=== PATIENT | male | born 1960 | race Caucasian/White ===

== ENCOUNTER 2020-04-29 09:59 | Emergency (ER) | payer OTHER, SELFPAY ==
--- NOTE | 2020-04-29 | XR_ITS ---
EXAMINATION: XR CERVICAL SPINE CLINICAL INFORMATION: Pain COMPARISON: None TECHNIQUE: 4 views of the cervical spine were obtained. FINDINGS: Bone alignment is normal. No fracture or dislocation is seen. There is degenerative spondylosis at C4-C5 and C5-C6. Disc spaces are normal. There is soft tissue opacification of the nuchal ligament posterior to the C5 and C6 spinous processes likely related to old trauma. Prevertebral soft tissues are normal. IMPRESSION: Degenerative spondylosis at C4-C5 and C5-C6.
[2020-04-29 10:10] VITALS: BP 185/93; PULSE 74; RESP 14; TEMP 36.7; O2SAT 98; BMI 31.6
--- NOTE | 2020-04-29 10:29 | ED_ITS ---
HPI - Extremity Problem General Chief complaint: Extremity Injury, Upper Stated complaint: SHOULDER PAIN Time Seen by Provider: 04/29/20 10:08 Source: patient Mode of arrival: ambulatory Limitations: no limitations History of Present Illness MD Complaint: extremity pain Onset (ago): week(s) Pain Consistency: constant Location: left Quality: burning, sharp and constant Radiation: proximal Relieving factors: nothing Exacerbating factors: nothing Associated symptoms: denies other symptoms Related Data Previous Rx's Medication Instructions Recorded cyclobenzaprine 10 mg PO Q8H PRN #14 tab 04/29/20 dexamethasone [Decadron] 4 mg PO DAILY #5 tab 04/29/20 hydrocodone-acetaminophen 1 tab PO Q8H PRN #5 tab 04/29/20 Allergies Allergy/AdvReac Type Severity Reaction Status Date / Time aspirin Allergy Mild Eye Verified 04/29/20 10:02 Swelling Review of Systems Review of Systems: Yes all other systems are reviewed and are negative Constitutional: Constitutional: Reports no additional constitutional complaints, Denies body ache(s), Denies chills, Denies fever(s), Denies headache(s) and Denies weakness Eyes: Eyes: Reports no additional eye complaints and Denies change in vision ENT: Reports system reviewed and no additional complaints, except as documented, Denies dizziness, Denies headache(s), Denies nasal congestion, Denies nasal discharge and Denies neck pain Cardiovascular: Cardiovascular: Reports no additional cardiovascular complaints, Denies chest pain, Denies leg edema and Denies dyspnea Respiratory: Respiratory: Reports no additional respiratory complaints, Denies cough and Denies dyspnea Gastrointestinal: Gastrointestinal: Reports no additional gastrointestinal complaints, Denies abdominal pain, Denies diarrhea, Denies nausea and Denies vomiting Genitourinary: Genitourinary: Denies urinary incontinence Musculoskeletal: Musculoskeletal: Reports no additional musculoskeletal complaints, Denies back pain, Reports arthralgias, Denies joint swelling, Denies limited range of motion, Denies neck pain, Denies numbness, Reports radiating pain into limb and Denies tingling Integumentary/Breasts: Skin/Breast: Reports system reviewed and no additional complaints, except as docu and Denies rash Neurologic: Reports system reviewed and no additional complaints, except as documented, Denies Abnormal speech present, Denies dizziness, Denies headache(s), Denies numbness, Denies tingling and Denies weakness [facility] Past Medical History Attestation statement: The following information was validated with the patient. Source: obtained from family and nursing notes reviewed Medical History Lyme carditis Surgical History Hx of appendectomy Social History Social History Alcohol intake: current Alcohol intake frequency: 3 or more drinks per day Alcohol type: beer Smoking Status: Never smoker Use of substances other than those prescribed or required for medical reasons: No Advance Directives: No Advance Directives Information Provided: No Physical Exam Vital Signs and I&O and Narrative: Vital Signs and I&O: Vital Signs Temp 98.1 F 04/29/20 10:10 Pulse 74 04/29/20 10:10 Resp 14 04/29/20 10:10 BP 185/93 H 04/29/20 10:10 Pulse Ox 98 04/29/20 10:10 Intake & Output 04/28/20 04/29/20 04/29/20 18:59 06:59 18:59 Weight 97.069 kg Body Mass Index 31.6 Const: General: cooperative, healthy appearing, comfortable and no acute distress Orientation/consciousness: patient oriented x3 Limitations: no limitations HENMT: Head: Yes normal to inspection Ears: hearing grossly normal bilaterally General nose exam: Normal external nose present Face and sinus: Yes normal facial exam Mouth: Normal oral and palatal mucosa present Throat: Yes posterior oropharynx normal Eyes: General: appearance normal, both eyes and all related structures Pupils: Equal, round and reactive pupils present Neck: Other: Pain with head rotation to left, right, pain with hyperextenion of neck, lower cervical midline tenderness. No step offs or deformities Neck: Yes normal visual inspection, Yes no lymphadenopathy and Yes no meningeal signs Chest: Chest palpation & inspection: normal inspection of the chest Resp: Effort & Inspection: normal respiratory effort Auscultation: clear to auscultation bilaterally Cardio: Rate: regular rate Rhythm: regular rhythm Peripheral pulses: Peripheral pulses 2+ throughout GI: Inspection: Yes normal to inspection Palpation (GI): Soft to palpation and nontender Auscultation: normal bowel sounds Back/Spine/Pelvis: Thoracic/Lumbar Spine: thoracic and lumbar spine normal to inspection Skin: General skin exam: no rashes or lesions noted Neuro: Other: FROM left hand/wrist. Able to perform OKAY sign General: patient oriented x3, no meningeal signs, no focal motor deficits and normal sensation to monofilament Cranial nerves: Yes Equal, round and reactive pupils present Cognition (Neuro): normal cognition Speech: No Abnormal speech present Gait exam (Neuro): Normal gait present Motor exam (neuro): 5/5 motor strength present throughout and Motor abnormalities not present Sensory Exam: Normal double simultaneous stimulation for sensation Extrem: General: Yes normal to inspection Left upper extremity: normal to inspection, full ROM, normal capillary refill and shoulder/upper arm (Pain over anterior shoulder, left trapezius. ); no edema and joint enlargement noted MDM - Extremity (Nontraumatic) MDM Narrative Medical decision making narrative: L shoulder/neck pain with radiation to distal extremity x 2 weeks with NKI. FROM of extremity. Pain more MS with cervical tenderness. Likely cervical radiculopathy vs MS. Will check cervical imaging. 1130-xrays c/w with degenerative changes, consistent with arthritis. Again likely cervical radiculopathy. Imaging Data cervical x-ray: Attestation: I personally reviewed and interpreted this imaging study as follows: My impression: Spondylosis, no acute fracture Radiologist's impression: EXAMINATION: XR CERVICAL SPINE CLINICAL INFORMATION: Pain COMPARISON: None TECHNIQUE: 4 views of the cervical spine were obtained. FINDINGS: Bone alignment is normal. No fracture or dislocation is seen. There is degenerative spondylosis at C4-C5 and C5-C6. Disc spaces are normal. There is soft tissue opacification of the nuchal ligament posterior to the C5 and C6 spinous processes likely related to old trauma. Prevertebral soft tissues are normal. IMPRESSION: Degenerative spondylosis at C4-C5 and C5-C6. Discharge Plan Discharge Clinical Impression: Cervical radiculopathy Patient Disposition: Home, Self-Care Instructions: Cervical Radiculopathy (ED) Additional Instructions: Heat to the area Do not mix the pain medication with alcohol Call PCP for follow-up if no improvement in 5-7 days Prescriptions: New cyclobenzaprine 10 mg tablet 10 mg PO Q8H PRN (Reason: muscle spasm) Qty: 14 RF: 0 dexamethasone [Decadron] 4 mg tablet 4 mg PO DAILY Qty: 5 RF: 0 hydrocodone-acetaminophen 5-300 mg tablet 1 tab PO Q8H PRN (Reason: pain) Qty: 5 RF: 0 Referrals: Physician,Unknown [Primary Care Provider] - 5 days (Your PCP if no better ) Interventions: ED Discharge Assessment Last Done: 04/29/20 11:42 Discharge Date/Time: 04/29/20 11:43
== END 2020-04-29 11:43 | disposition home or self-care (01) ==
LOC: HO.ED 11:39
PROVIDERS: Emergency Provider Emergency Medicine
DX: M54.12 Radiculopathy, cervical region (principal)
CPT/HCPCS: 72040; 99283; 99284

== ENCOUNTER 2020-12-28 07:28 | Day surgery (SDC) | payer OTHER, SELFPAY ==
[2020-12-23 08:14] VITALS: BMI 29.7
--- NOTE | 2020-12-23 16:39 | MHC.SHP ---
Pre-Procedural Eval Section A The patient is an INPATIENT: No The History & Physical has been completed within 30 days and I have reviewed it.: Yes Section B Chief Complaint: Cataract Right Eye Allergies: Allergies Allergy/AdvReac Type Severity Reaction Status Date / Time aspirin Allergy Mild Eye Verified 12/23/20 08:19 Swelling,hives Plan Diagnosis/Plan: Unchanged I have reviewed the history and physical and performed a pertinent physical examination on my patient. No changes have occurred unless specified.
--- NOTE | 2020-12-25 09:42 | P.CONAN_ITS ---
Documented by User: Katelyn Coronado 12/25/20 09:42 HPI - Anesthesia Eval Consult details Narrative: 60yo M for Right Cataract Extraction IOL Insertion PCP Cleared No prev cataract on record [facility] Past Medical History Medical History H/O heartburn Low back pain Lyme carditis Seasonal allergies Surgical History Surgical History Hx of appendectomy Hx of colonoscopy Social History Social History Alcohol intake: current Alcohol intake frequency: 3 or more drinks per day Alcohol type: beer Patient Tobacco Use Status: Former Tobacco user Quit Date: 2004 Are you DNR?: No Advance Directives: No Advance Directives Information Provided: No Advance Directives on File: No Meds Allergies Allergy/AdvReac Type Severity Reaction Status Date / Time aspirin Allergy Mild Eye Verified 12/23/20 08:19 Swelling,hives Home Medications Medication Instructions Recorded Confirmed Last Taken Type No Known Home Meds 12/23/20 12/23/20 Unknown History Exam Exam Date and Time: December 25, 2020 0942 Height,Weight and Vital Signs: Height 5 ft 9 in Weight 91.172 kg Assessment and Plan Assessment Anesthesia Assessment: Chart Reviewed Documented by User: Taras Winn 12/28/20 08:12 [facility] Past Medical History Medical History H/O heartburn Low back pain Lyme carditis Seasonal allergies Surgical History Surgical History Hx of appendectomy Hx of colonoscopy Social History Social History Alcohol intake: current Alcohol intake frequency: 3 or more drinks per day Alcohol type: beer Patient Tobacco Use Status: Former Tobacco user Quit Date: 2004 Are you DNR?: No Advance Directives: No Advance Directives Information Provided: No Advance Directives on File: No Meds Allergies Allergy/AdvReac Type Severity Reaction Status Date / Time aspirin Allergy Mild Eye Verified 12/23/20 08:19 Swelling,hives Home Medications Medication Instructions Recorded Confirmed Last Taken Type No Known Home Meds 12/23/20 12/23/20 Unknown History Exam Airway Mallampati Class: II TM Dist: >3cm Neck ROM: Full Loose/Missing/Broken Teeth: No Heart: rrr+[id number] Lungs: cta b/l Assessment and Plan Assessment Anesthesia Assessment: Anesthesia Plan Discussed, PAT Visit and Chart Reviewed Final Anesthetic Review NPO: Yes ASA Class: II Final Preanesthetic Review: No Changes in Pt Med Stat, Meds/Allgs Chart Reviewed, Consent Obtained/Reviewed and Anes Risks/Benef Reviewed Patient Risk: Low Procedure Risk: Low Assessment/Block/Sedation in SS: Assess/Block/Sedation-SS Anesthetic Plan Anesthetic Plan: MAC: and Agree w/ Assess. and Plan Disposition: Standard PACU
[2020-12-28] MEDS: Tetracaine HCl/PF 0.5% Oph Sol 4 ML DROPS 1 DROP EYE-RIGHT (08:14)
[2020-12-28] MEDS: Tropicamide 1 % Ophth Sol 3 ML BTL 1 DROP EYE-RIGHT ×3 (08:15→08:31)
[2020-12-28 08:18] VITALS: BP 184/99; PULSE 66; RESP 16; TEMP 36.7; O2SAT 98
[2020-12-28] MEDS: Phenylephrine HCL 2.5% Oph SoL 2 ML BOTTLE 1 DROP EYE-RIGHT ×3 (08:20→08:34)
[2020-12-28 08:24] VITALS: BP 194/97; PULSE 63
[2020-12-28 08:28] VITALS: BP 178/94; PULSE 62
[2020-12-28] MEDS: Lactated Ringers 500 ML 50 ML IV (08:31)
--- NOTE | 2020-12-28 09:22 | HO.PNOPHT ---
Ophthalmology Procedure Procedure Date of Service: 12/28/20 Ophthalmology Viscoelastic: Healon Duet Dual Pack Pro Ophthalmology Lenses: TECNIS [id number] (21.5) Procedure Notes: PREOPERATIVE DIAGNOSIS: Decreased visual acuity right eye secondary to cataract POSTOPERATIVE DIAGNOSIS: Same PROCEDURE: Right cataract extraction with intraocular lens insertion SURGEON: Bong Zavala M.D. ANESTHESIA: Topical/MAC ESTIMATED BLOOD LOSS: None COMPLICATIONS: None After obtaining informed consent, the patient was brought to the operating room suite and placed in the supine position. After adequate sedation per anesthesia, topical drops of Tetracaine were given to the right eye. The eye was then prepped and draped in the usual sterile fashion. The operating room microscope was then positioned over the operative eye and a lid speculum placed. A paracentesis was created. Viscoelastic was then instilled into the anterior chamber. A three plane incision was then created temporally, utilizing a 2.85 mm keratome. Capsulotomy forceps were then utilized to create a circular tear capsulotomy. Hydrodissection and hydrodelineation were carried out until adequate mobilization of the nucleus occurred. Phacoemulsification was then utilized to remove the dense central nucleus followed by removal of the cortical material utilizing the automated aspiration irrigation unit. Viscoelastic was instilled into the posterior capsular bag followed by placement of a posterior chamber intraocular lens without difficulty. The residual Viscoelastic was then removed utilizing the automated IA machine. The wound was checked and found to be watertight. The patient tolerated the procedure well and the lid speculum was removed. Intracameral injection of Vigamox 0.1 mL followed by a subtenon injection of Kenalog-40 0.2 mL were administered. The patient will be seen in the a.m.
[2020-12-28 09:43] VITALS: BP 143/92; PULSE 78; RESP 18; TEMP 36.4; O2SAT 97
== END 2020-12-28 09:51 | disposition home or self-care (01) ==
PROVIDERS: PCP Internal Medicine; Visit Provider Ophthalmology
PROC: (CPT 66985; principal; 2020-12-28 09:30)
DX: H25.11 Age-related nuclear cataract, right eye (principal); H52.4 Presbyopia; J30.2 Other seasonal allergic rhinitis; R12 Heartburn; Z88.8 Allergy status to other drugs, medicaments and biological substances; Z87.891 Personal history of nicotine dependence
CPT/HCPCS: 66984; J2250; J3010; J3300; V2632

== ENCOUNTER 2021-01-11 07:16 | Day surgery (SDC) | payer OTHER, SELFPAY ==
[2020-12-23 08:20] VITALS: BMI 29.7
--- NOTE | 2021-01-07 07:44 | MHC.SHP ---
Pre-Procedural Eval Section A The patient is an INPATIENT: No The History & Physical has been completed within 30 days and I have reviewed it.: Yes Section B Chief Complaint: Cataract Left Eye Allergies: Allergies Allergy/AdvReac Type Severity Reaction Status Date / Time aspirin Allergy Mild Eye Verified 12/23/20 08:19 Swelling,hives Plan Diagnosis/Plan: Unchanged I have reviewed the history and physical and performed a pertinent physical examination on my patient. No changes have occurred unless specified.
--- NOTE | 2021-01-08 09:38 | HO.ANESPROP2 ---
Documented by User: Katelyn Coronado 01/08/21 09:38 HPI - Anesthesia Eval Consult details Narrative: 60yo M for Left Cataract Extraction IOL Insertion PCP cleared R eye 12/28/20: Fent 100, Midaz 2 COUNTS INCLUDE 234 BEDS AT THE [facility] Past Medical History Medical History H/O heartburn Low back pain Lyme carditis Seasonal allergies Surgical History Surgical History Hx of appendectomy Hx of colonoscopy Social History Social History Alcohol intake: current Alcohol intake frequency: 3 or more drinks per day Alcohol type: beer Patient Tobacco Use Status: Former Tobacco user Quit Date: 2004 Are you DNR?: No Advance Directives: No Advance Directives Information Provided: No Advance Directives on File: No Meds Allergies Allergy/AdvReac Type Severity Reaction Status Date / Time aspirin Allergy Mild Eye Verified 12/23/20 08:19 Swelling,hives Home Medications Medication Instructions Recorded Confirmed Last Taken Type No Known Home Meds 12/23/20 12/23/20 Unknown History Exam Exam Date and Time: January 08, 2021 0938 Height,Weight and Vital Signs: Height 5 ft 9 in Weight 91.172 kg Assessment and Plan Assessment Anesthesia Assessment: Chart Reviewed Documented by User: Sara Solis 01/11/21 09:35 COUNTS INCLUDE 234 BEDS AT THE [facility] Past Medical History Medical History H/O heartburn Low back pain Lyme carditis Seasonal allergies Surgical History Surgical History Hx of appendectomy Hx of colonoscopy Social History Social History Alcohol intake: current Alcohol intake frequency: 3 or more drinks per day Alcohol type: beer Patient Tobacco Use Status: Former Tobacco user Quit Date: 2004 Are you DNR?: No Advance Directives: No Advance Directives Information Provided: No Advance Directives on File: No Meds Allergies Allergy/AdvReac Type Severity Reaction Status Date / Time aspirin Allergy Mild Eye Verified 12/23/20 08:19 Swelling,hives Home Medications Medication Instructions Recorded Confirmed Last Taken Type No Known Home Meds 12/23/20 12/23/20 Unknown History Exam Airway Mallampati Class: II TM Dist: >3cm Neck ROM: Full Heart: rrr Lungs: cta Assessment and Plan Assessment Anesthesia Assessment: Anesthesia Plan Discussed and Chart Reviewed Final Anesthetic Review NPO: Yes ASA Class: II and III Final Preanesthetic Review: No Changes in Pt Med Stat and Consent Obtained/Reviewed Patient Risk: Intermediate Procedure Risk: Intermediate Anesthetic Plan Anesthetic Plan: MAC: Disposition: Standard PACU
[2021-01-11 08:49] VITALS: BP 163/85; PULSE 61; RESP 16; TEMP 36.3; O2SAT 97
[2021-01-11] MEDS: Tetracaine HCl/PF 0.5% Oph Sol 4 ML DROPS 1 DROP EYE-LEFT (09:07)
[2021-01-11] MEDS: Tropicamide 1 % Ophth Sol 3 ML BTL 1 DROP EYE-LEFT ×3 (09:08→09:12)
[2021-01-11] MEDS: Phenylephrine HCL 2.5% Oph SoL 2 ML BOTTLE 1 DROP EYE-LEFT ×3 (09:09→09:14)
[2021-01-11] MEDS: Lactated Ringers 500 ML 50 ML IV (09:11)
--- NOTE | 2021-01-11 10:08 | HO.PNOPHT ---
Ophthalmology Procedure Procedure Date of Service: 01/11/21 Ophthalmology Viscoelastic: Healminda Duet Dual Pack Pro Ophthalmology Lenses: [id number] [id number] (21) Procedure Notes: PREOPERATIVE DIAGNOSIS: Decreased visual acuity left eye secondary to cataract POSTOPERATIVE DIAGNOSIS: Same PROCEDURE: Left cataract extraction with intraocular lens insertion SURGEON: Bong Zavala M.D. ANESTHESIA: Topical/MAC ESTIMATED BLOOD LOSS: None COMPLICATIONS: Iris Prolapse After obtaining informed consent, the patient was brought to the operation room suite and placed in the supine position. After adequate sedation per anesthesia, topical drops of Tetracaine were given to the left eye. The eye was then prepped and draped in the usual sterile fashion. The operating room microscope was then positioned over the operative eye and a lid speculum placed. A paracentesis was created. Viscoelastic was then instilled into the anterior chamber. A three plane incision was then created temporally, utilizing a 2.85 mm keratome. Capsulotomy forceps were then utilized to create a circular tear capsulotomy. Hydrodissection and hydrodelineation were carried out until adequate mobilization of the nucleus occurred. Phacoemulsification was then utilized to remove the dense central nucleus followed by removal of the cortical material utilizing the automated aspiration irrigation unit. Viscoat elastic was instilled into the posterior capsular bag followed by placement of a posterior chamber intraocular lens without difficulty. The residual Viscoat elastic was then removed utilizing the automated IA machine. The wound was check and found to be watertight. Iris prolapse was noted and reqired Miochol which resulteds in a small round pupil. The patient tolerated the procedure well and the lid speculum was removed. Intracameral injection of Vigamox 0.1 mL followed by a subtenon injection of Kenalog-40 0.2 mL were administered. The patient will be seen in the a.m.
[2021-01-11 10:37] VITALS: BP 155/97; PULSE 71; RESP 17; TEMP 36.1; O2SAT 98
== END 2021-01-11 11:09 | disposition home or self-care (01) ==
PROVIDERS: PCP Internal Medicine; Visit Provider Ophthalmology
PROC: (CPT 66985; principal; 2021-01-11 10:00)
DX: H25.12 Age-related nuclear cataract, left eye (principal); T85.898A Other specified complication of other internal prosthetic devices, implants and grafts, initial encounter; H21.89 Other specified disorders of iris and ciliary body; H54.7 Unspecified visual loss; Y77.8 Miscellaneous ophthalmic devices associated with adverse incidents, not elsewhere classified; Y92.234 Operating room of hospital as the place of occurrence of the external cause; Z87.891 Personal history of nicotine dependence
CPT/HCPCS: 66984; J2250; J3010; J3300; V2632